=== PATIENT | male | born 1985 | race Caucasian/White ===

== ENCOUNTER 2018-01-23 05:00 | Emergency (ER) | payer OTHER, SELFPAY ==
[2018-01-23 05:01] VITALS: BP 118/65; PULSE 50; RESP 12; TEMP 37.1; O2SAT 98; BMI 25.7
--- NOTE | 2018-01-23 05:40 | EKG12_ITS ---
Test Reason : SYNCOPE Blood Pressure : / mmHG Vent. Rate : 044 BPM Atrial Rate : 044 BPM P-R Int : 156 ms QRS Dur : 104 ms QT Int : 432 ms P-R-T Axes : -47 072 055 degrees QTc Int : 369 ms Unusual P axis, possible ectopic atrial bradycardia Early repolarization Abnormal ECG Confirmed by ELEAZAR MOTT, WAN ([id number]), editor managing director JERRY MAURICE ([id number]) on 01/28/2018 2:10:53 PM Referred By: SAAD Confirmed By:WAN BUSH MD
--- NOTE | 2018-01-23 05:40 | RAD_ITS ---
STUDY: X-RAY CHEST REASON FOR EXAM: Male, 32 years old. Status post 2 syncopal episodes at home. Woke up this morning with shortness of breath. TECHNIQUE: COMPARISON: None. FINDINGS: There is asymmetric decreased attenuation in the right upper lung field, which is probably due to emphysema. There is no demonstrated pulmonary infiltrate. There is no demonstrated pleural abnormality. Normal size heart. Normal mediastinum and kranthi. Normal visualized pulmonary arteries. Normal visualized aortic arch and descending thoracic aorta. Normal visualized thoracic spine. Normal visualized ribs, clavicles, and shoulders. There is no demonstrated abnormality of the visualized soft tissue structures of the upper abdomen. RAD/Chest 1 View (Portable) IMPRESSION: Suspect emphysematous changes in the right upper lobe. No evidence for acute cardiopulmonary pathology. Electronically Signed: Berny Arzola MD at 6:36 EST , Service support ,
[2018-01-23 05:42] VITALS: O2SAT 97
[2018-01-23] MEDS: 0.9% Normal Saline 1,000 ML 1000 ML IV ×2 (05:44→06:14)
[2018-01-23 05:52] LABS: Absolute Lymphocyte Count 2.65 X10^3/ul (0.83-4.51); Absolute Neutrophil Count 1.4 X10^3/uL (2.0-7.7); Basophil# 0.01 X10^3/uL; Basophil% 0.2 % (0-1); Eosinophil# 0.23 X10^3/uL; Eosinophils% 5.1 % (0-5); Hematocrit 39.5 % (40-54); Hemoglobin 13.2 g/dl (13.0-16.5); Lymphocyte # 2.65 X10^3/ul (4.0); Lymphocyte % 58.2 % (19-41); Mean Corp Hgb Conc 33.4 g/gl (32-36); Mean Corpuscular Hgb 30.4 pg (27.0-32.0); Mean Platelet Vol. 9.2 fl (6.2-12.0); Monocyte% 6.6 % (0-10); Neutrophil # 1.35 X10^3/uL (2.7-7.7); Neutrophil % 29.7 % (47-70); Platelet Count 201 K/mm3 (150-450); RBC Distribution Width CV 12.2 % (11.6-14.6); Red Blood Count 4.34 M/mm3 (4.6-6.2); White Blood Count 4.6 K/mm3 (4.4-11.0)
--- NOTE | 2018-01-23 05:53 | ED.DCSUM_ITS ---
- ER Visit Summary Date of Service: 01/23/18 Chief Complaint: [] Syncope x2 History of Present Illness: The patient is a 32 M and had 2 episodes of syncope today. He tried to get up out of bed and walk and felt lightheaded and nauseous. He passed out. He did strike his head on the side of his dresser. Anatoly young recollected himself and then sat back on the bed. He got lightheaded and passed out again. His significant other than brought him in. He did have 5 beers last night. He denies illegal drug use. He has no local doctor or medical problems. This never happened before. He drinks beer twice per week only. Physical Examination: [] Vital signs reviewed General: Well-nourished well-developed Head: Normocephalic atraumatic Eyes: Pupils equal round and reactive to light extraocular movements intact ENT: TMs clear no hemotympanum no trauma Neck: Nontender full range of motion Cardiovascular: Regular bradycardia no murmurs normal S1-S2 Respiratory: No distress clear to auscultation bilaterally chest nontender Abdomen: Soft nontender nondistended normal bowel sounds no masses Back: Nontender no CVA tenderness Extremities: Nontender active range of motion ?4 extremities no trauma Skin: Normal color no trauma Neuro alert oriented cranial nerves II through XII intact normal strength sensation reflexes Test Results: [] Emergency Department Course and Treatment: [] EKG shows sinus bradycardia rate of 44. Positive ectopic P waves noted. However the rhythm appears regular. Lab work obtained. patient given IV fluids. Lab work shows a chloride of 108. Troponin negative. Mag and fossa normal. Chest x-ray shows nothing acute. Patient's heart rate came up into the low 60s. He is asymptomatic in the department. Patient requests transfer to [facility] due to his insurance. They will be contacted and he will be transferred. They want to go by private vehicle secondary to financial constraints. I think this is reasonable. They are instructed not to ambulate however and use the wheelchairs Treatment Plan: [] Disposition: [] Impression: [] Syncope x2 secondary to sinus bradycardia This note was generated with [employer] dictation software. It may contain incorrect words, spelling, and punctuation that were not noted in review of the chart prior to signing ED Disposition - Plan for ED Patient: Chief Complaint: Syncope Referrals: [facility] Doctor,Out of [NON-STAFF] -
[2018-01-23 05:59] LABS: POSITIVE COUNT NO; POSITIVE DIFFERENTIAL NO; POSITIVE MORPHOLOGY NO
[2018-01-23 06:02] LABS: Anion Gap 5 (5-15); BUN 12 mg/dL (7-18); BUN/Creat Ratio 13.8 RATIO (10-20); Calcium,Total 8.4 mg/dL (8.5-10.1); Chloride 108 mmol/L (98-107); Creatinine, Serum 0.87 mg/dL (0.70-1.30); EST Glomerular Filtration Rate 109 mL/min (>60); Est Glom Filt Rate - Afr Amer 132 mL/min (>60); Estimated Creatinine Clearance 132.23 ml/min; Glucose 87 mg/dL (74-106); Magnesium 1.8 mg/dL (1.6-2.6); Phosphorus 3.9 mg/dL (2.5-4.9); Potassium 3.9 mmol/L (3.5-5.1); Sodium Level 141 mmol/L (136-145)
--- NOTE | 2018-01-23 06:34 | NURSING ---
pt walked the unit. heart rate 68-72
--- NOTE | 2018-01-23 06:49 | NURSING ---
CALLED [facility], NO BEDS AND 24 IN WAITING ROOM
--- NOTE | 2018-01-23 07:05 | NURSING ---
CALLED [facility]. DR NASH TALKING TO HOSPITALIST
[2018-01-23 08:02] VITALS: BP 133/74; PULSE 69; RESP 16
--- NOTE | 2018-01-23 08:02 | ED.RN ---
pt ambulates to bathroom with steady gait.
--- NOTE | 2018-01-23 08:19 | NURSING ---
CALLED [facility] FOR A BED STATUS.
--- NOTE | 2018-01-23 08:28 | NURSING ---
CALLED [facility] TRANFER LINE.
[2018-01-23 08:46] VITALS: BP 127/63; PULSE 59; RESP 16; O2SAT 98
--- NOTE | 2018-01-23 08:46 | NURSING ---
[facility] TRANSFER LINE FOR DR HINES.
--- NOTE | 2018-01-23 08:56 | NURSING ---
[facility] MAIN TIGHT BED STATUS. DR HINES AWARE
--- NOTE | 2018-01-23 09:03 | NURSING ---
PATIENT GOING TO [facility]
--- NOTE | 2018-01-23 09:18 | NURSING ---
ACCEPTED AT [facility]. WAITING ON BED
--- NOTE | 2018-01-23 09:51 | NURSING ---
[facility] BED 28 REPORT [phone]
[2018-01-23 10:32] VITALS: BP 134/62; PULSE 67; RESP 16; TEMP 36.7; O2SAT 96
--- OUTSIDE RECORDS SUMMARY | 2018-03-20 06:06 | XMS RPT_ITS ---
:1985 Author Organization OHIP Care Team Providers Name Role Phone SWATI PRICE Admitting Unavailable LI ZHANG Attending Unavailable CATIA RIZO Consulting Unavailable Young Crow Attending Unavailable Primay Care Physicia, No Primary Care Unavailable PROBLEMS PROBLEMS DATE TYPE CONDITION / CODE ATTENDING STATUS SOURCE 01/23/2018 Active Syncope and ZANGMEISTER, Active [facility] collapse / [facility] Other [place] R55(ICD-10) Repository 01/23/2018 Active Bradycardia, ZANGMEISTER, Active [facility] unspecified / [facility] Other [place] R00.1(ICD-10) Repository PROCEDURES PROCEDURES No Procedure Records FoundRESULTS RESULTS 12 LEAD ELECTROCARDIOGRAM Observed: 01/28/2018 Status: F Source: [place] 2:11 PM [facility] REPOSITORY [facility] Cardiovascular Services [address] [place] [address] 12 Lead EKG 01/23/18 0523 MR#: [id number] Acct: [id number] Name: MIGUEL CHASE Rep #: [id number] : 1985 32 From: Andrew Bush MD Attending Dr: Status: DEP ER Ordering Dr: Young Crow MD Date: 01/23/18 Location: ED Sex: M C Admitted: Test Reason : SYNCOPE Blood Pressure : / mmHG Vent. Rate : 044 BPM Atrial Rate : 044 BPM P-R Int : 156 ms QRS Dur : 104 ms QT Int : 432 ms P-R-T Axes : -47 072 055 degrees QTc Int : 369 ms Unusual P axis, possible ectopic atrial bradycardia Early repolarization Abnormal ECG Confirmed by ANDREW BUSH MD ([id number]), development editor JERRY MAURICE ([id number]) on 01/28/2018 2:10:53 PM Referred By: SAAD Confirmed By:ANDREW BUSH MD 01/28/18 1411 Date Andrew Bush MD CC: No Primary Care Physician; Young Crow MD Signed NURSING PROG Observed: 01/23/2018 Status: COMPLETED Source: [place] 3:17 PM [facility] REPOSITORY HNO ID: [id number] Author: Aym (Rn) CHRIS Hernandez Service: Nursing Author Type: Registered Nurse Type: Nursing Progress Note Filed: 01/23/2018 3:21 PM Note Text: Discharge instructions given to pt. IV removed that was in place from [facility]. Telemetry removed. Discharged to home with with belongings. CNDS Observed: 01/23/2018 Status: COMPLETED Source: [place] 2:58 PM [facility] REPOSITORY HNO ID: [id number] Author: Li Zhang Service: Hospital Medicine Author Type: Physician Type: Discharge Summaries Filed: 01/24/2018 3:24 PM Note Text: DISCHARGE SUMMARY PATIENT NAME: Miguel Reyes Holter ADMISSION DATE: 01/23/2018 DISCHARGE DATE: 01/23/2018 ATTENDING PHYSICIAN: Li Zhang Code Status: Not on file Highest Readmission Risk Score: 7 The 30 day readmissions risk score is derived from an internally validated risk model which evaluates patient level characteristics, utilization history, medication orders and lab results up until the day of discharge. Patients with a score of 40 or above are considered highest risk for readmission. Specific patient level drivers will be listed at the bottom of the summary. REASON FOR HOSPITALIZATION: This is a 32 year old male with no significant past medical history. He has been very healthy, athletic background, not on any routine medications, without history of headaches, seizure disorder, or other neurological problems. He had approximately 6 alcoholic beverages last evening, was not drinking much other fluid, and when he got up to urinate around 4:30 AM he became dizzy/lightheaded, sat down on the bed, and then passed out, falling forward and bumping his head on the dresser. His just returned from work and witnessed this episode, helped him back in bed. He was unresponsive for less than one minute, and then tried to stand back up and passed out a second time for less than one minute. There was no seizure activity, no loss of bowel or bladder control, no chest discomfort, shortness of breath, palpitations or GI symptoms. He was acting back to normal after the second episode without complaint of headache or visual difficulty, and she drove him to the [facility] emergency room, where lab work was unremarkable, EKG revealed sinus bradycardia of 44 without arrhythmia, chest x-ray was normal. No head CT was performed. He was transferred to [facility] for further evaluation for syncopal episodes. ? OPERATIONS DURING HOSPITALIZATION: None PROCEDURES DURING HOSPITALIZATION: No procedures performed HOSPITAL COURSE: There is no further episodes of syncope, no dizziness or lightheadedness.he was ambulating without difficulty, and telemetry revealed normal sinus rhythm with rate of 60-70. He was cleared by cardiology for discharge home, to have outpatient follow-up with PCP. Transitions of Care Critical Issues: Recommend establish PCP, obtain further labs including fasting lipids, thyroid function, magnesium level. LABS AND PROCEDURES PENDING AT DISCHARGE: No pending results. CONSULTING TEAMS DURING HOSPITALIZATION: EP cardiology PATIENT CONDITION AT DISCHARGE: Good DISCHARGE DISPOSITION: Home/Self Care INFORMATION PROVIDED TO PATIENT: medication list and follow-up instructions ALLERGIES No Known Allergies DISCHARGE MEDICATION: There are no discharge medications for this patient. FUTURE APPOINTMENTS: . Advised to select PCP, and arrange outpatient labs as listed above. The patient's risk for 30-day readmission is determined using the following contributing factors: Pt variables contributing to increased readmission risk: 3 Active Medication Orders 1 Insurance - Private Coverage 1 Discharge Disposition - Home TIME OF CARE: Discharge Management: I personally spent greater than 30 minutes involved in the discharge management of this patient. SIGNATURE: Li Zhang MD PAGER/CONTACT #: DATE: January 23, 2018 TIME: 2:58 PM HISTORY PHYSICAL Observed: 01/23/2018 Status: COMPLETED Source: [place] 2:58 PM CLINIC OTHER CAMPUS REPOSITORY HNO ID: [id number] Author: Li Dentneda Service: Hospital Medicine Author Type: Physician Type: HANDP Filed: 01/24/2018 2:51 PM Note Text: DEPARTMENT OF HOSPITAL MEDICINE HISTORY AND PHYSICAL EXAM SERVICE DATE: 01/23/2018 SERVICE TIME: 1300 Primary Care Physician: No primary care provider on file. NIGHT AND WEEKEND COVERAGE: Days: [phone], please page me for patient issues. Nights: [phone], please page [facility] Hospitalist Night Coverage pager: [phone]. Subjective CHIEF COMPLAINT: passed at home this morning HPI: This is a 32 year old male with no significant past medical history. He has been very healthy, athletic background, not on any routine medications, without history of headaches, seizure disorder, or other neurological problems. He had approximately 6 alcoholic beverages last evening, was not drinking much other fluid, and when he got up to urinate around 4:30 AM he became dizzy/lightheaded, sat down on the bed, and then passed out, falling forward and bumping his head on the dresser. His just returned from work and witnessed this episode, helped him back in bed. He was unresponsive for less than one minute, and then tried to stand back up and passed out a second time for less than one minute. There was no seizure activity, no loss of bowel or bladder control, no chest discomfort, shortness of breath, palpitations or GI symptoms. He was acting back to normal after the second episode without complaint of headache or visual difficulty, and she drove him to the [facility] emergency room, where lab work was unremarkable, EKG revealed sinus bradycardia of 44 without arrhythmia, chest x-ray was normal. No head CT was performed. He was transferred to [facility] for further evaluation for syncopal episodes. No past medical history on file. PAST SURGICAL HISTORY Procedure Laterality Date - NONE No family history on file. Social History Substance Use Topics - Smoking status: Never Smoker - Smokeless tobacco: Not on file - Alcohol use Not on file MEDICATIONS: Reviewed No prescriptions prior to admission. ALLERGIES No Known Allergies REVIEW OF SYSTEM: GENERAL: No weight loss, malaise or fevers RESPIRATORY: Negative for cough, hemoptysis, wheezing, COPD, dyspnea or shortness of breath CARDIOVASCULAR: Negative for chest pain, leg swelling, hypertension, CHF or palpitations GI: No nausea, vomiting, or diarrhea MUSCULOSKELETAL: Negative for joint pain or swelling, back pain or muscle pain SKIN: Negative for lesions, rash, and itching NEURO: SEE HPI Objective PHYSICAL EXAM: BP 137/80 Pulse 55 Temp (Src) 97.9 (Temporal Artery) Resp [17[ Wt 188 lb 6.4 oz (85.5kg) SpO2 98% Physical Exam Performed: GENERAL: Alert, no distress, cooperative SKIN: Skin color, texture, turgor normal. No rashes or lesions. LUNGS: Lungs clear to auscultation, Good diaphragmatic excursion CARDIAC: Normal S1 and S2; no rubs, murmurs, or gallops Lines, Drains, and Airways No matching active lines, drains, or airways Reviewed lines, drains, AND airways. Need to continue peripheral IV DATA: Diagnostic tests reviewed for today's visit: Most recent labs and imaging results. Most recent EKG Assessment/Plan Syncopal episodes ?2 this morning with sinus bradycardia found in the emergency room.POA: Yes Assessment AND Plan: telemetry reveals normal sinus rhythm 50s to 70s. EP cardiology suspects vasodepressor syncope, and it is likely that earlier alcohol intake and likely dehydration played a role. He is cleared medically for discharge with follow-up with primary care. Medication and Non-Pharmacologic VTE Prophylaxis/Anticoagulants 01/23/18 1245 pneumatic compression stockings ([place]) 01/23/18 1245 activity - mobilize patient ([place]) Disposition: Home Plan of care discussed with: Patient and RN SIGNATURE: Li Zhang MD PATIENT NAME: Miguel Chase DATE: January 23, 2018 TIME: 2:58 PM PAGER/CONTACT #: [phone] NURSING PROG Observed: 01/23/2018 Status: COMPLETED Source: [place] 11:45 AM [facility]IC OTHER CAMPUS REPOSITORY HNO ID: [id number] Author: Amy (Rn) CHRIS Hernandez Service: Nursing Author Type: Registered Nurse Type: Nursing Progress Note Filed: 01/23/2018 3:19 PM Note Text: Admitted from [facility] ER transported by here to [place]. Alert and oriented x3. Telemetry applied. Pt has IV in left forearm from [facility]. No c/o dizziness. Up to bathroom with steady gait. No sob noted. No c/o lightheadedness. at bedside.See docflowsheet for VS. EMERGENCY DEPARTMENT Observed: 01/23/2018 Status: F Source: [place] SUMMARY 7:13 AM [facility] REPOSITORY [facility] Medical Records Department [address] [place] [address] Emergency Department Summary 01/23/18 0551 MR#: [id number] Acct: [id number] Name: IMGUEL CHASE Rep #: [id number] : 1985 32 From: Young Crow MD PCP: Care Physician, No Primary Status: REG ER - ER Visit Summary Date of Service: 01/23/18 Chief Complaint: [] Syncope x2 History of Present Illness: The patient is a 32 M and had 2 episodes of syncope today. He tried to get up out of bed and walk and felt lightheaded and nauseous. He passed out. He did strike his head on the side of his dresser. He recollected himself and then sat back on the bed. He got lightheaded and passed out again. His significant other than brought him in. He did have 5 beers last night. He denies illegal drug use. He has no local doctor or medical problems. This never happened before. He drinks beer twice per week only. Physical Examination: [] Vital signs reviewed General: Well-nourished well-developed Head: Normocephalic atraumatic Eyes: Pupils equal round and reactive to light extraocular movements intact ENT: TMs clear no hemotympanum no trauma Neck: Nontender full range of motion Cardiovascular: Regular bradycardia no murmurs normal S1-S2 Respiratory: No distress clear to auscultation bilaterally chest nontender Abdomen: Soft nontender nondistended normal bowel sounds no masses Back: Nontender no CVA tenderness Extremities: Nontender active range of motion 4 extremities no trauma Skin: Normal color no trauma Neuro alert oriented cranial nerves II through XII intact normal strength sensation reflexes Test Results: [] Emergency Department Course and Treatment: [] EKG shows sinus bradycardia rate of 44. Positive ectopic P waves noted. However the rhythm appears regular. Lab work obtained. patient given IV fluids. Lab work shows a chloride of 108. Troponin negative. Mag and fossa normal. Chest x-ray shows nothing acute. Patient's heart rate came up into the low 60s. He is asymptomatic in the department. Patient requests transfer to [facility] due to his insurance. They will be contacted and he will be transferred. They want to go by private vehicle secondary to financial constraints. I think this is reasonable. They are instructed not to ambulate however and use the wheelchairs Treatment Plan: [] Disposition: [] Impression: [] Syncope x2 secondary to sinus bradycardia This note was generated with [employer] dictation software. It may contain incorrect words, spelling, and punctuation that were not noted in review of the chart prior to signing ED Disposition - Plan for ED Patient: Chief Complaint: Syncope Referrals: [facility] Doctor,Out of [NON-STAFF] - What to do if you have Problems For any increased pain, shortness of breath, bleeding, nausea or vomiting, chest pain, or any unexpected problems, contact your Primary Care Provider. Call [facility] ([phone]) or report to the closest Emergency Room. Call 911 if necessary. 01/23/18 0713 <Electronically signed by Young Crow MD> Date Young Crow MD Cosigner Signature (If Indicated): Date CC: No Primary Care Physician CHEST 1 VIEW Observed: 01/23/2018 Status: F Source: [place] (PORTABLE) 5:41 AM [facility] REPOSITORY [facility] Imaging Services [address] [place] [address] Chest 1 View (Portable) MR#: [id number] Acct: [id number] Name: MIGUEL CHASE Rep #: [id number] : 1985 M 32 From: Berny Arzola MD PCP: Care Physician, No Primary Status: REG ER Study: Chest 1 View (Portable) Date of Exam: 01/23/18 Exam# [id number] Ordering Dr: Young Crow MD STUDY: X-RAY CHEST REASON FOR EXAM: Male, 32 years old. Status post 2 syncopal episodes at home. Woke up this morning with shortness of breath. TECHNIQUE: COMPARISON: None. FINDINGS: There is asymmetric decreased attenuation in the right upper lung field, which is probably due to emphysema. There is no demonstrated pulmonary infiltrate. There is no demonstrated pleural abnormality. Normal size heart. Normal mediastinum and kranthi. Normal visualized pulmonary arteries. Normal visualized aortic arch and descending thoracic aorta. Normal visualized thoracic spine. Normal visualized ribs, clavicles, and shoulders. There is no demonstrated abnormality of the visualized soft tissue structures of the upper abdomen. RAD/Chest 1 View (Portable) IMPRESSION: Suspect emphysematous changes in the right upper lobe. No evidence for acute cardiopulmonary pathology. Electronically Signed: Berny Arzola MD at 6:36 EST , Service support , CC: No Primary Care Physician; Young Crow MD Bull Gang Worker: Signed CBC W/DIFF, AUTOMATED Collected: 01/23/2018 Status: F Source: [place] 5:20 AM [facility] REPOSITORY TYPE CODE TESTS RESULT OUT OF RANGE REFERENCE UNITS LAB L100.1000 4.4-11.0 K/mm3 Normal WBC 4.6 LAB L100.1200 4.6-6.2 M/mm3 Low RBC 4.34 LAB L100.1300 13.0-16.5 g/dl Normal HGB 13.2 LAB L100.1400 40-54 % Low HCT 39.5 LAB L100.1500 80-94 fL Normal MCV 91.0 LAB L100.1600 27.0-32.0 pg Normal MCH 30.4 LAB L100.1700 32-36 g/gl Normal MCHC 33.4 LAB L100.1810 11.6-14.6 % Normal RDW CV 12.2 LAB L100.1820 35.1-43.9 fl Normal RDW SD 41.0 LAB L100.1900 150-450 K/mm3 Normal PLT 201 LAB L100.2000 6.2-12.0 fl Normal MPV 9.2 LAB L100.2100 47-70 % Low NEUT% 29.7 LAB L100.2200 19-41 % High LY% 58.2 LAB L100.2300 0-10 % Normal MONO% 6.6 LAB L100.2400 0-5 % High EO% 5.1 LAB L100.2500 0-1 % Normal BASO% 0.2 LAB L100.2550 0.0-0.9 % Normal IM GRAN % 0.200 Result Comment: IG% - Immature Granulocytes (promyelocytes, myelocytes and metamyelocytes) > 1% indicates that a LEFT SHIFT is Present. LAB L100.2620 2.0-7.7 X10 3/uL Low Absolute Neut 1.4 LAB L100.2720 0.83-4.51 X10 3/ul Normal Absolute Lymph 2.65 Performed By: #### L100.0100 #### [facility] [address] [place], [address] BASIC METABOLIC Collected: 01/23/2018 Status: F Source: [place] PROFILE ([facility]) 5:20 AM [facility] REPOSITORY TYPE CODE TESTS RESULT OUT OF RANGE REFERENCE UNITS LAB L501.0100 74-106 mg/dL Normal GLU 87 Result Comment: Please note revised GLUCOSE reference range effective 2017. LAB L501.1000 7-18 mg/dL Normal BUN 12 LAB L501.1100 0.70-1.30 mg/dL Normal CREAT,SERUM 0.87 Result Comment: The validity of the calculated GFR AND GFRAA in patients over 70 years has not been determined. Clinical correlation is essential. LAB L501.1110 >60 mL/min Normal EST GFR 109 Result Comment: Non- GFR Calc LAB L501.1115 >60 mL/min Normal EST GFR - AA 132 Result Comment: GFR Calc LAB L501.1255 ml/min Normal Estimated CRCL 132.23 LAB L501.1300 10-20 RATIO BUN/CRE Normal 13.8 LAB L501.2200 8.5-10 mg/dL Low .1 CA 8.4 LAB L501.5300 136-14 mmol/L 5 NA Normal 141 LAB L501.5600 3.5-5. mmol/L 1 K Normal 3.9 LAB L501.5900 98-107 mmol/L High CL 108 LAB L501.6100 21.0-3 mmol/L 2.0 CO2 Normal 28.0 LAB L501.6200 5-15 GAP Normal 5 Performed By: #### L500.2500, L501.2300, L501.4010, L501.5200 #### [facility] [address] [place], [address] PHOSPHORUS Collected: 01/23/2018 Status: F Source: [place] 5:20 AM [facility] REPOSITORY TYPE CODE TESTS RESULT OUT OF RANGE REFERENCE UNITS LAB L501.2300 2.5-4.9 mg/dL Normal PHOS 3.9 Performed By: #### L500.2500, L501.2300, L501.4010, L501.5200 #### [facility] [address] [place], [place], [address] TROPONIN-I Collected: 01/23/2018 Status: F Source: [place] 5:20 AM [facility] REPOSITORY TYPE CODE TESTS RESULT OUT OF RANGE REFERENCE UNITS LAB L501.4010 <0.045 ng/mL Normal < 0.015 TROPONIN-I Result Comment: TROPONIN-I EXPECTED VALUES <0.045 Negative 0.045 - 0.590 Consistent with Cardiac Damage > OR = 0.600 Critical Value Not every elevated troponin is indicative of FL. These values should be used with clinical judgement in examining the patient's clinical picture for diagnosis. To establish a diagnosis of FL versus myocardial injury, there must be a demonstrated rise and/or fall in the troponin values, in addition to ischemic symptoms, EKG changes, new regional wall motion abnormality, and/or angiographical evidence. PLEASE NOTE: REFERENCE RANGES EDITED 17 Performed By: #### L500.2500, L501.2300, L501.4010, L501.5200 #### [facility] [address] [place], [place], [address] MAGNESIUM Collected: 01/23/2018 Status: F Source: [place] 5:20 AM [facility] REPOSITORY TYPE CODE TESTS RESULT OUT OF RANGE REFERENCE UNITS LAB L501.5200 1.6-2.6 mg/dL Normal MG 1.8 Performed By: #### L500.2500, L501.2300, L501.4010, L501.5200 #### [facility] [address] [place], [address] CONSULT Observed: 01/23/2018 Status: COMPLETED Source: [place] 12:00 AM CLINIC OTHER CAMPUS REPOSITORY HNO ID: [id number] Author: Catia Rizo Service: Cardiovascular Medicine Author Type: Physician Type: Consults Filed: 01/24/2018 7:47 AM Note Text: [facility] - Consultation MIGUEL CHASE : 1985 AGE: 32 SEX: M CSN: [id number] [facility] LOCATION: [facility] ATTENDING PHYSICIAN: Li Zhang M.D. DATE OF CONSULTATION: 01/23/2018 CONSULTING PHYSICIAN: Catia Rizo M.D. REASON: Syncope. HISTORY OF PRESENT ILLNESS: This is a pleasant 32-year-old patient. The patient came to [facility] because he had an episode at home with loss of consciousness. His was also in the room and I examined him and apparently, his comes to work around 4 o'clock in the morning and he at that time usually he gets up or 430 in the morning and apparently, he got up and he went to the bathroom. He urinated and then he started feeling dizzy. He said that he was walking back into his bedroom and he felt dizzy and he started sweating, but he made it to the side of the bed and his was there but then at that time, he wanted to drink some water and then he stood up, and at that time, he passed out and fell. His actually helped him to get back into the bed. When he got back into the bed, he felt a little better but then again he got up, wanted to go back to the bathroom and in the bathroom, he passed out again. The helped him back to the bedroom, he was sweating profusely. He actually did not have chest pain. He did not have palpitation. No other symptoms, and then he gradually improved and she actually took him. She drove into [facility], they live close there, and then because they wanted to come to one of the [facility] he came here. Since then, actually he has been doing fine. Otherwise, he is a very healthy 32-year-old man. He usually is very active. He coaches football. He never had any similar episode like that. No other symptoms. REVIEW OF SYSTEMS: Constitutional: No fever, no chills. No visual changes. No hearing changes. Appetite is the same. Respiratory: No acute shortness of breath. Cardiac: No chest pain. No palpitations. GI: No vomiting. No diarrhea. : No urinary symptoms. Psych and Neuro: No mood changes. No numbness. Endocrine: No heat or cold intolerance. Hematology: No bleeding. PAST MEDICAL HISTORY: No known medical condition. ALLERGIES: No known allergy. MEDICATIONS: He does not take medication. SOCIAL HISTORY: He works as a horse riding coach or instructor. He does not smoke cigarette. He drinks alcohol probably couple of times a week. He chewed tobacco but does not use any other drugs. PHYSICAL EXAMINATION: General: The patient has no acute distress. Vital Signs: His blood pressure was 137/80. His heart rate was 52, respiratory rate is 16. HEENT: No bruises or ecchymosis. Neck: Jugular venous pulsation was not seen. Lungs: Clear. Heart: Normal heart sounds. I did not hear a murmur. Abdomen: Soft. Extremity: No edema. Neurological: He is alert and oriented. He had no focal deficits. Skin: No bruises. LABORATORY DATA: The labs that were done at a different hospital were reviewed. Creatinine 0.87, potassium was 3.9, magnesium was 1.8. His EKG, there is a copy of it stock, which showed sinus bradycardia although the P wave appears to be of unusual morphology, it is possible that this is also an ectopic atrial rhythm. But this was done at 0522 hours this morning. Currently, on telemetry, he is in sinus rhythm. IMPRESSION AND PLAN: The patient's episode is classical for vasodepressor syncope. I discussed that with the patient and I explained to him the most important reaction is that he should sit down or lie down when he experienced any dizziness and not stand up and he understands that. Regarding his bradycardia, I do not think this is related and he is a healthy 32-year-old patient, who is expected to have low heart rate at rest and his episode of syncope was not sudden loss of consciousness. It was gradual which usually indicate more vasodepressive nature. From my standpoint, the patient can be discharged home and I discussed that with the hospitalist, Dr. Zhang. Catia Rizo M.D. Cardiology TH:[id number] /[id number] ALLERGIES ALLERGIES DATE TYPE / CODE NAME / CODE REACTION SEVERITY SOURCE 01/23/2018 Drug amoxicillin/F006 Hives Unknown [facility] Allergy/416 557842(RXNORM) [facility] 602729(SNOM Repository ED CT) Drug NO KNOWN [facility] Class/20731 ALLERGIES Other [place] 1003(SNOMED Repository CT) ENCOUNTERS ENCOUNTERS ADMIT/DISCHARGE ACCOUNT ADMITTING ENCOUNTER LOCATION SOURCE NUMBER CLASS 01/23/2018/01/24/20 [id number] [facility] ROOM - [place], Inpatient [place] [address] [facility] En[facility] Other [place] Repository 01/23/2018/01/24/20 [id number] [facility] [address] ing:ED Repository PAYERS PAYERS ENCOUNTER GUARANTOR PAYER SUBSCRIBER SOURCE 01/23/2018 MIGUEL L Primary MIGUEL L Yessy [id number] Insurance:MUTUAL HOLTERDOB: [id number]: Rep[facility] [id number]: [phone] [id number] [phone] () Date:[id number] [address] [address], [place] [address]TF: 01/23/2018 Secondary NOT GIVENUNK [facility] Insurance:SELF PAY [facility] Number: Effective Repository Date:2018-01-23
== END 2018-01-23 10:42 | disposition short-term general hospital (02) ==
PROVIDERS: Emergency Provider Emergency Medicine
DX: R55 Syncope and collapse (principal); R00.1 Bradycardia, unspecified; F17.220 Nicotine dependence, chewing tobacco, uncomplicated
CPT/HCPCS: 71045; 80048; 83735; 84100; 84484; 85025; 93005; 96360; 96361; 99285; J7030; A4216

== ENCOUNTER 2023-11-21 17:09 | Emergency (ER) | payer OTHER, SELFPAY ==
[2023-11-21 17:10] VITALS: BP 123/77; PULSE 64; RESP 15; TEMP 36.3; O2SAT 97; BMI 26.5
--- NOTE | 2023-11-21 17:15 | CT_ITS ---
STUDY: CT FACIAL BONES WITHOUT CONTRAST REASON FOR EXAM: Male, 38 years old. INJURY TECHNIQUE: The patient was scanned in a multi detector CT scanner. Sagittal and coronal images were reconstructed. Individualized dose optimization techniques were used for this CT. COMPARISON: None. FINDINGS: Normal soft tissue structures. Comminuted depressed fracture seen of the right frontozygomatic arch. Displaced fracture seen of the lateral process of the frontal bone with encroachment into the right orbit. Comminuted displaced fractures of the right lateral orbital wall. Probable displaced fracture of the right orbital floor without herniation of contents. Probable old fracture of the posterolateral right maxillary alex. Normal orbital contents. Normal nasal bones and anterior nasal spine. Normal visualized paranasal sinuses. CT/Sinus/Facial Bone IMPRESSION: Fractures of the right frontozygomatic arch, the right lateral orbital margin, the right lateral orbital wall, and possibly right orbital floor. Electronically Signed: Jay Tripathi MD at 17:43 EDT ,
--- NOTE | 2023-11-21 17:15 | CT_ITS ---
STUDY: CT BRAIN WITHOUT CONTRAST REASON FOR EXAM: Male, 38 years old. INJURY RADIATION DOSAGE (If Supplied By Facility): CTDIvol = ( 44.99 ) mGy, DLP = ( 796.11 ) mGycm TECHNIQUE: Transaxial CT imaging of the brain was performed without administration of intravenous contrast material. Individualized dose optimization techniques were used for this CT. COMPARISON: No relevant priors. FINDINGS: Normal soft tissue structures. Normal calvarium. Right facial fractures are seen, see separate report. Normal size ventricles and extra-axial spaces for the patient''s age. Normal white matter tracts of the cerebral hemispheres. Normal basal ganglia and thalami. Normal brainstem. Normal cerebellum. There is no intracranial hemorrhage. There are no findings of an acute ischemic infarction. Normal visualized paranasal sinuses. CT/Brain/Head without Contrast IMPRESSION: Normal unenhanced CT scan of the brain. Electronically Signed: Jay Tripathi MD at 17:37 EDT ,
[2023-11-21] MEDS: HYDROmorphone 1 MG/ML Syringe IM (18:31)
[2023-11-21] MEDS: Ondansetron ODT 4 MG Tablet PO (18:31)
--- NOTE | 2023-11-21 18:42 | EDS_ITS ---
HPI History of Present Illness Chief Complaint: Head Injury Informant: patient and spouse/S.O. Narrative Narrative: 38-year-old male presenting with head and facial injury. Patient was at football practice when he got either shoulder pad or helmet to the right uatsdin region. He notes pain when he opens and closes eyes. He denies any loss of consciousness. No double vision. He notes some nausea. He states that his teeth hurt. PFSH PFSH Home Medications ?Medication ?Instructions ?Recorded ?Last Taken ?Type oxycodone-acetaminophen 5 mg-325 1 tab PO Q6H PRN pain 3 days #12 11/21/23 Unknown Rx mg tablet (Percocet) tabs Allergy/AdvReac Type Severity Reaction Status Date / Time amoxicillin Allergy Hives Verified 01/23/18 05:01 Social History Smoking Status: Never smoker ROS ROS ED Constitutional Constitutional ED: Denies chills, fever(s) or weight loss Eyes Eyes: Reports other Details: Facial pain right temporal/ocular pain ; Denies blurry vision, change in vision or diplopia ENT ENT ED: Denies ear pain, rhinorrhea or sore throat Cardiovascular Cardiovascular: Denies chest pain, orthopnea, palpitations or racing heartbeat Respiratory/Chest Respiratory/Chest: Denies cough, dyspnea or orthopnea Gastrointestinal Gastrointestinal: Reports nausea; Denies abdominal pain, diarrhea or vomiting Genitourinary Genitourinary ED: Denies dysuria, hematuria or urinary frequency Musculoskeletal Musculoskeletal: Denies arthralgias or myalgias Integumentary Denies abscess or rash Neurologic Neurologic: Reports headache(s); Denies weakness Psychiatric Psychiatric: Denies anxiety, depression, suicidal ideation or suicidal thoughts Endocrine Endocrinology: Denies polydipsia, polyphagia or polyuria Allergic/Immunologic Allergic/Immunologic ED: Denies mouth swelling, tongue swelling or urticaria EXAM Physical Exam Const Vital Signs: 11/21/23 17:10 11/21/23 18:16 Temperature 97.4 F L Temperature Source Oral Pulse Rate 64 Respiratory Rate 15 Respiratory Effort Normal Blood Pressure 123/77 H Blood Pressure Mean 92 Pulse Ox 97 Oxygen Delivery Method Room Air Positive well nourished and well developed General Appearance ED: well developed HEENT Reports normocephalic and moist mucous membranes HEENT Narrative: Swelling and tenderness over the zygomatic arch. There is no trismus. He is able to open and close the jaw. Extraocular motions appear intact. Pupil appears normal. No hyphema. No significant conjunctival hemorrhage noted. Eyes PERRL and EOMs intact bilaterally Neck full ROM, no lymphadenopathy, supple and no JVD Resp normal respiratory effort and clear to auscultation bilaterally Cardio regular rate, regular rhythm and no murmurs GI normal to inspection, nondistended, normoactive bowel sounds and non-tender Palpation: soft Back/Spine no CVA tenderness and normal ROM Extremity normal to inspection General Extremety ED: Negative for edema General Extremity: Negative for edema Neuro oriented x3 and CN's II-XII intact bilaterally Sensorium / Orientation: alert Motor Exam: strength 5/5 throughout Psych mental status grossly normal Mood & Affect: Negative for depressed or tearful Skin no rashes or lesions noted and no wounds MDM MDM MDM Narrative Medical decision making narrative: Differential diagnosis includes but not limited to concussion facial fractures ocular trauma intracranial hemorrhage CT of the brain demonstrates no acute intracranial fracture or hemorrhage. CT of the facial bones was obtained which demonstrates a zygomatic arch fracture right lateral orbital margin fracture right lateral orbital wall fracture and orbital floor fracture. His extraocular motions are intact. He received a dose of Dilaudid and Zofran. I spoke with Dr. Beaver from plastic surgery was come to the emergency department and evaluated the patient. He will follow-up with the patient as an outpatient I will write for pain medication. History & Record Review Discussion w/independent historian: Patient Radiography Diagnostic Testing: Clinical Impression(s) from Imaging Studies Brain CT 11/21/23 17:15 IMPRESSION: Normal unenhanced CT scan of the brain. Electronically Signed: Jay Tripathi MD at 17:37 EDT , Facial/Sinus 11/21/23 17:15 IMPRESSION: Fractures of the right frontozygomatic arch, the right lateral orbital margin, the right lateral orbital wall, and possibly right orbital floor. Electronically Signed: Jay Tripathi MD at 17:43 EDT , Management Discussion w/another healthcare provider: Business Administration Instructor (Dr. Keita) Discharge Plan Triage Chief Complaint: Head Injury ED Provider: Luis Shelby Dx/Rx/DC Orders Clinical Impression: Orbital fracture, Closed fracture of zygomatic arch Instructions: ED Facial Fracture Prescriptions: New oxycodone-acetaminophen [Percocet] 5-325 mg tablet 1 tab PO Q6H PRN (Reason: pain) 3 Days Qty: 12 0RF Primary Care Provider: Care Physician,No Primary Referrals: Galindo Keita MD [Med Staff - Active Staff] - As soon as possible Care Physician,No Primary [Primary Care Provider] - Print Language: Burmese Disposition Disposition: Home, Self Care
[2023-11-21 19:31] VITALS: BP 129/71; PULSE 81
--- NOTE | 2023-11-21 20:00 | EX.PCM.CON.S ---
Assessment & Plan Assessment/Plan (1) Orbital fracture: (2) Closed fracture of zygomatic arch: PLAN: Plan Physical exam and CT scan demonstrate right lateral orbital fractures as well as a depressed zygomatic arch fracture. There is a fragment of the fracture that is abutting the lateral rectus, but he is asymptomatic. I discussed with the patient and his the indications for facial fracture fixation, and in his case pain from the depressed zygomatic arch fracture when he opens his mouth widely is an indication, and there is an also an indication to fix the lateral orbit as there will be a step-off/deformity (fracture is displaced). I talked to the patient and his about multiple facial approaches (gingival buccal sulcus, periorbital approaches and orbital floor approach, pre-tragal approach to zygomatic arch) and hardware placement. They endorsed and understanding. I talked to the patient and his extensively about risks of fracture fixation, including failure of the hardware and need for repeat surgeries, failure to obtain the desired result (residual pain and deformity), infection (including hardware infection and need for repeat surgery), bleeding, damage to surrounding structures including the contents of the orbit (eye damage including blindness, as well as eye muscle damage) and damage to nerves such as the frontal branch of the facial nerve or long-lasting neuropraxia of the sensory nerves, and risks of anesthesia including VTE. I also talked to the patient about no strenuous activity for 1 month following the surgery. The patient and his understood the risks and wanted to proceed with surgery. Plan for open reduction internal fixation through multiple surgical approaches for the right malar area facial fractures. CPT codes for insurance prior authorization are as follows: 36606 HPI Consult Data Date of Consult: 11/22/23 HPI Narrative HPI Narrative: MIGUEL MARQUEZ is a delightful otherwise healthy 38-year-old male who presents with right face/periorbital fractures after he was hit in the face by a football players facemask during a football practice. 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 The patient reports sharp severe pain in the right side of his face worsened by movements and improved with rest and elevation of the head of bed. His bite feels normal, but he reports pain with opening his mouth widely on the right cheek and along the zygomatic arch. He denies any malocclusion. No double vision or changes in vision. No pain with extraocular movements. Patient does not smoke The patient reports that they do not have any personal or family history of bleeding or clotting disorders, and no family problems with anesthesia. [facility] Home Medications ?Medication ?Instructions ?Recorded ?Last Taken ?Type ondansetron 4 mg disintegrating 4 mg PO Q6H PRN PRN Nausea #15 tabs 11/21/23 Unknown Rx tablet oxycodone-acetaminophen 5 mg-325 1 tab PO Q6H PRN PRN Pain 3 days 11/21/23 Unknown Rx mg tablet #12 TABLETS Allergy/AdvReac Type Severity Reaction Status Date / Time amoxicillin Allergy Hives Verified 01/23/18 05:01 Social History Smoking Status: Never smoker Physical Exam Const alert and oriented x3 HEENT HEENT Narrative: Face exam: Tenderness to palpation of the right lateral orbit along the zygomaticofrontal suture with palpable step-off. Tenderness to palpation over the zygomatic arch. No lacerations, closed injury. No enophthalmos or hypoglobus. Cranial nerve exam: Cranial nerve II: visual acuity intact (able to read small letters from across the room). No changes in color interpretation. Cranial nerves III, IV and : extraocular movements intact, no diplopia with extraocular movements. Cranial nerve V: sensation to light touch intact in all 3 distributions of cranial nerve V. Cranial nerve VII: He is able to raise eyebrows, closes eyes, smile, purse lips, and move his lower lip to show his lower teeth symmetrically on both sides. Patient is able to stick out his tongue and shrug shoulders normally. Uvula elevates. No septal hematoma or pain over the nasal bridge. Normal occlusion. No loose or missing teeth. He is able to open his mouth widely (4 cm), but he has exquisite pain with opening his mouth widely in the right upper cheek. Imaging Radiology Impression Brain CT 11/21/23 17:15 IMPRESSION: Normal unenhanced CT scan of the brain. Electronically Signed: Jay Tripathi MD at 17:37 EDT , Facial/Sinus 11/21/23 17:15 IMPRESSION: Fractures of the right frontozygomatic arch, the right lateral orbital margin, the right lateral orbital wall, and possibly right orbital floor. Electronically Signed: Jay Tripathi MD at 17:43 EDT , I personally reviewed the CT scan and the 3D reconstruction of the CT scan Charges/Coding Visit Charges Office Visits / Consults: 92102 OV L5 New 60min
== END 2023-11-21 19:45 | disposition home or self-care (01) ==
PROVIDERS: Emergency Provider Emergency Medicine; Referring Provider Emergency Medicine; Visit Provider Emergency Medicine
DX: S02.841A Fracture of lateral orbital wall, right side, initial encounter for closed fracture (principal); S02.81XA Fracture of other specified skull and facial bones, right side, initial encounter for closed fracture; S02.40EA Zygomatic fracture, right side, initial encounter for closed fracture; W50.0XXA Accidental hit or strike by another person, initial encounter; Y93.61 Activity, american tackle football
CPT/HCPCS: 70450; 70486; 96372; 99282